=== PATIENT | male | born 1990 | race Caucasian/White ===

== ENCOUNTER 2025-03-11 00:56 | Emergency (ER) | payer OTHER, MEDICAID, SELFPAY ==
[2025-03-11] VITALS (9 sets, daily range): BP systolic 101–149; BP diastolic 56–96; PULSE 51–76; RESP 15–18; O2SAT 70–99; BMI 22.5
--- NOTE | 2025-03-11 01:10 | ED.ABDPAIN ---
HPI - Abdominal Pain General Chief Complaint: Abdominal Pain Stated Complaint: RUQ pain Time Seen by Provider: 03/11/25 00:56 History of Present Illness HPI narrative: 35-year-old male history of alcohol pancreatitis presents with epigastric pain and nonbilious nonbloody vomit and watery diarrhea brought in via EMS given 100 of fentanyl prior to arrival. 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 Patient denies chest pain shortness breath cough fever chills body aches urinary complaints. Other than what is stated 14 point review of system is negative. Related Data Previous Rx's ?Medication ?Instructions ?Recorded ondansetron HCl 4 mg tablet 4 mg PO Q6H PRN nausea and 03/11/25 vomiting #30 tabs Allergies Allergy/AdvReac Type Severity Reaction Status Date / Time No Known Drug Allergies Allergy Verified 03/11/25 01:09 Review of Systems Review of Systems ROS Unobtainable: All systems reviewed & are unremarkable except as noted in HPI and below Exam Narrative Exam Narrative: GENERAL: [35] year old patient appears stated age. Well-developed patient, in mild distress. HEAD: Atraumatic. Normocephalic. EYES: Pupils equal round and reactive. Extraocular motions intact. No scleral icterus. No injection or drainage. ENT: Nose without bleeding, purulent drainage. Throat without erythema, tonsillar hypertrophy or exudate. Airway patent. NECK: Trachea midline. Non tender CARDIOVASCULAR: Regular rate and rhythm without murmurs, gallops, or rubs. RESPIRATORY: Clear to auscultation. Breath sounds equal bilaterally. No wheezes, rales, or rhonchi. GASTROINTESTINAL: Abdomen soft, epigastric tenderness to palpation but no rebound rigidity or guarding nondistended. EXTREMITIES: No edema or joint tenderness. BACK: Nontender without deformity or crepitance. No flank tenderness. NEURO: AOx3. SKIN: No rash or erythema of visible areas MDM - Abdominal Pain MDM Narrative Medical decision making narrative: All lab work, vital signs, nurse triage note, medication list, previous ER visits, and all imaging studies reviewed. CT scan showed abdominal and pelvic ascites but no evidence of colitis diverticulitis bowel obstruction or obstructive uropathy. Appendix is not seen. Patient did have a white count of 18.9 with a left shift CO2 was 23 BUN 21 creatinine 0.68 glucose 104 lipase was 45 take acid is 1.1. Differential diagnosis includes pancreatitis cholecystitis appendicitis cyclic abdominal vomiting syndrome secondary to marijuana use. DC home on Zofran rx and to keep hydrated with clear liquid diet and to advance as tolerated and to return with new or worsening symptoms. Discharge Plan Departure Patient Disposition: Home Clinical Impression: Abdominal pain Qualifiers: Abdominal location: epigastric Qualified Code(s): R10.13 - Epigastric pain Nausea & vomiting Qualifiers: Vomiting type: unspecified Qualified Code(s): R11.2 - Nausea with vomiting, unspecified Instructions: DI for Abdominal Pain-Adult Activity Restrictions/Additional Instructions: Return with new or worsening symptoms. Clear liquid diet advance as tolerated. Take medicine as directed. Follow up with PCP in 1-2 weeks if no improvement in symptoms. Prescriptions: New ondansetron HCl 4 mg tablet 4 mg PO Q6H PRN (Reason: nausea and vomiting) Qty: 30 0RF Stand Alone Forms: Patient Portal/API
--- NOTE | 2025-03-11 01:11 | DI.CT.S_ITS ---
PROCEDURE: CT ABDOMEN PELVIS W CON INDICATIONS: abd pain /hx pancreatitis TECHNIQUE: After the administration of intravenous contrast, axial sections acquired from the lung bases to the pubic symphysis. Coronal and sagittal reformats were performed. For radiation dose reduction, the following was used: automated exposure control, adjustment of mA and/or kV according to patient size. COMPARISON: [facility], CT, CT ABDOMEN PELVIS WITH CONTRAST, 11/01/2019, 19:13. FINDINGS: Image quality: Diagnostic Lower chest: Unremarkable lung bases Liver: Unremarkable Gallbladder and biliary system: CBD is at the upper limit of normal, measuring 6 mm. Gallbladder is unremarkable. Pancreas: [id number] peripancreatic edema. There are calcifications distally. Low-attenuation focus is seen at the pancreatic tail. Pancreas divisum Spleen: Nonenlarged Adrenals: No discrete nodules Kidneys: No solid renal mass. No hydronephrosis. Vessels and lymph nodes: No abdominal aortic aneurysm. The main portal vein is patent. Mild atherosclerotic calcifications. No pathologic lymphadenopathy by size criteria. Bowel and peritoneum: Diffuse changes of enteritis with fluid-filled bowel and wall thickening. No definite obstruction. Wall thickening and mild edema also seen throughout the colon. Mild diffuse ascites. Nondilated appendix Body wall: Unremarkable Pelvis: Bladder is unremarkable. Bones: No aggressive appearing osseous abnormality. IMPRESSION: Hypoattenuation and calcifications of the distal pancreas. Consider nonurgent pancreas MRI to further evaluate. No high-grade peripancreatic inflammatory changes by CT. Suspect enterocolitis, moderate in severity. Mild diffuse ascites. Due to changes from the preliminary report, this was called to Dr. Barraza. Dictated by: Eduar Mistry M.D. on 03/11/2025 at 9:29 Approved by: Eduar Mistry M.D. on 03/11/2025 at 9:36
[2025-03-11] MEDS: KETOROLAC 30 MG/ML VIAL IV (01:21)
[2025-03-11] MEDS: droPERidol 2.5 MG/ML VIAL IV (01:22)
[2025-03-11] MEDS: diphenhydrAMINE 50 MG/ML VIAL IV (01:23)
[2025-03-11] MEDS: LACTATED RINGERS 1,000 ML 1000 ML IV (01:24)
[2025-03-11 01:43] LABS: Add Manual Diff / Slide Review NO; Basophils Absolute Auto 100 /uL (0-100); Basophils Percent Auto 0.5 % (0-2); Eosinophils Absolute Auto 0 /uL (0-450); Eosinophils Percent Auto 0.2 % (2-4); Hematocrit 44.1 % (41-53); Hemoglobin 15.1 g/dL (13.5-17.5); Lymphocytes Absolute Auto 3000 /uL (1100-4500); Lymphocytes Percent Auto 15.8 % (25-40); Mean Corpuscular HGB Conc 34.2 % (30-36); Mean Corpuscular Hemoglobin 30.8 PG (26-34); Monocytes Absolute Auto 600 /uL (0-900); Neutrophils Absolute Auto 15200 /uL (1500-7000); Neutrophils Percent Auto 80.5 % (50-75); Platelet Count 277 X10^3/uL (150-400); Red Cell Distribution Width 13.9 % (11.6-14.8); White Blood Cell Count 18.9 X10^3/uL (4.5-11.0)
[2025-03-11 01:57] LABS: Alanine Aminotransferase 20 IU/L (<50); Albumin 4.7 g/dL (3.5-5.0); Albumin Globulin Ratio 1.6 (1.0-2.8); Alkaline Phosphatase 76 U/L (38-126); Aspartate Aminotransferase 35 IU/L (17-59); BUN Creatinine Ratio 30.9 (6-22); Bilirubin Total 1.1 mg/dL (0.2-1.3); Blood Urea Nitrogen 21 mg/dL (9-20); Calcium 9.4 mg/dL (8.4-10.2); Carbon Dioxide 23 mmol/L (22-32); Chloride 105 mmol/L (98-107); Estimated Glomerular Filt Rate > 60 mL/min (>60); Glucose 104 mg/dL (70-99); HEMOLYSIS 32 (0-50); Lipase 45 U/L (23-300); Potassium 3.6 mmol/L (3.4-5.1); Sodium 137 mmol/L (137-145); Total Protein 7.7 g/dL (6.3-8.2)
[2025-03-11 02:08] LABS: Lactate (Lactic Acid) 1.1 mmol/L (0.7-2.1)
[2025-03-11 03:42] LABS: Ictotest Urine Negative (Negative); Urine Volume 10mL (spun)
[2025-03-11 03:43] LABS: Bacteria Urine None Seen; Culture Indicated Urine Cult Not Indicated; RBC Urine 0-1/HPF (0-5/HPF); Squamous Epithelial Cell Urine None Seen (0-5/HPF); WBC Urine None Seen (0-5/HPF)
== END 2025-03-11 03:40 | disposition home or self-care (01) ==
PROVIDERS: Emergency Provider Family Medicine
DX: R10.13 Epigastric pain (principal); R11.2 Nausea with vomiting, unspecified; R19.7 Diarrhea, unspecified
CPT/HCPCS: 36415; 74177; 80053; 81003; 81015; 83605; 83690; 85025; 87040; 87086; 96361; 96374; 96375; 99283; 99284; J1200; J1790; J1885; Q9967

== ENCOUNTER 2025-07-07 01:54 | Emergency (ER) | payer OTHER, MEDICAID, SELFPAY ==
[2025-07-07] VITALS (8 sets, daily range): BP systolic 102–128; BP diastolic 67–81; PULSE 64–86; RESP 20; TEMP 36.4; O2SAT 94–100; BMI 21.2
--- NOTE | 2025-07-07 02:23 | ED_ITS ---
HPI - Abdominal Pain General Chief Complaint: Abdominal Pain Stated Complaint: abdominal pain Time Seen by Provider: 07/07/25 02:06 Source: patient and EMS Mode of arrival: EMS History of Present Illness HPI narrative: 35-year-old male with history of prior pancreatitis, prior use of omeprazole print not recently taken, complains of epigastric abdominal pain, no trauma, no fevers or chills. Denies nausea and vomiting. No diarrhea, black stools, red stools. Denies injury or trauma or new activities. No painful or frequent urination. Denies chest discomfort, cough, shortness of breath. Related Data Previous Rx's ?Medication ?Instructions ?Recorded ondansetron HCl 4 mg tablet 4 mg PO Q6H PRN nausea and 03/11/25 vomiting #30 tabs omeprazole 20 mg capsule,delayed 20 mg PO DAILY upper abdominal 07/07/25 release pain 30 days #30 caps Allergies Allergy/AdvReac Type Severity Reaction Status Date / Time No Known Drug Allergies Allergy Verified 07/07/25 02:02 Exam Narrative Exam Narrative: GENERAL: Well-developed patient, in mild distress. HEAD: Atraumatic. Normocephalic. EYES: Pupils equal round and reactive. Extraocular motions intact. No scleral icterus. No injection or drainage. ENT: Nose without bleeding, purulent drainage. Throat without erythema, tonsillar hypertrophy or exudate. Airway patent. NECK: Trachea midline. Non tender CARDIOVASCULAR: Regular rate and rhythm without murmurs, gallops, or rubs. RESPIRATORY: Clear to auscultation. Breath sounds equal bilaterally. No wheezes, rales, or rhonchi. GASTROINTESTINAL: Abdomen soft, non-tender, nondistended. EXTREMITIES: No edema or joint tenderness. BACK: Nontender without deformity or crepitance. No flank tenderness. NEURO: AOx3. Motor functions grossly nonfocal. SKIN: No rash or erythema of visible areas Initial Vital Signs Initial Vital Signs: Vital Signs Pulse Rate 64 07/07/25 02:00 Pulse Oximetry 100 07/07/25 02:00 Oxygen Delivery Method Room Air 07/07/25 02:00 Course Orders Ordered: ED Orders 07/07/25 02:00 Complete Blood Count AUTO DIFF Stat Comprehensive Metabolic Panel Stat Lipase Stat 07/07/25 03:24 CT abdomen pelvis w con Stat Discontinued Medications Hydrocodone Bitart/Acetaminophen (Hydrocodone/Acet 5/325 Prepack) 1 bottle MISC DIRECTED ONE Stop: 07/07/25 02:48 Last Admin: 07/07/25 02:55 Dose: Not Given Documented By: Famotidine (Famotidine 20 Mg/2 Ml Vial) 20 mg IV NOW SHAY Last Admin: 07/07/25 02:35 Dose: 20 mg Documented By: Pantoprazole Sodium (Pantoprazole Dr 20 Mg Tablet) 20 mg PO NOW ONE Stop: 07/07/25 04:28 Last Admin: 07/07/25 04:40 Dose: 20 mg Documented By: CAROLINA Vital Signs Vital signs: Vital Signs - 8 hr 07/07/25 02:00 07/07/25 02:02 07/07/25 02:30 Temperature 97.5 F L Pulse Rate 64 65 74 Respiratory Rate 20 Blood Pressure 128/67 Pulse Oximetry 100 98 99 Oxygen Delivery Method Room Air Room Air 07/07/25 02:30 07/07/25 03:00 07/07/25 03:00 Temperature Pulse Rate 70 Respiratory Rate Blood Pressure 108/72 116/81 Pulse Oximetry 94 Oxygen Delivery Method 07/07/25 03:30 07/07/25 03:30 07/07/25 03:48 Temperature Pulse Rate 86 85 Respiratory Rate Blood Pressure 113/75 Pulse Oximetry 97 96 Oxygen Delivery Method 07/07/25 03:48 07/07/25 04:00 07/07/25 04:00 Temperature Pulse Rate 74 Respiratory Rate Blood Pressure 107/75 115/76 Pulse Oximetry 96 Oxygen Delivery Method 07/07/25 04:30 07/07/25 04:30 Temperature Pulse Rate 73 Respiratory Rate Blood Pressure 102/72 Pulse Oximetry 96 Oxygen Delivery Method MDM - Abdominal Pain Lab Data Attestation: I reviewed the patient's lab results. Lab results narrative: White blood cell count 51311, hemoglobin 16.8, platelets adequate. Glucose 94. Normal renal function, serum CO2, electrolytes. Liver functions and lipase normal. 07/07/25 02:00 07/07/25 02:00 Labs: Lab Results 07/07/25 Range/Units 02:00 WBC 14.7 H (4.5-11.0) X10^3/uL RBC 5.69 (4.5-5.9) X10^6/uL Hgb 16.8 (13.5-17.5) g/dL Hct 49.9 (41-53) % MCV 87.8 (80-100) fL MCH 29.6 (26-34) PG MCHC 33.7 (30-36) % RDW 14.2 (11.6-14.8) % Plt Count 327 (150-400) X10^3/uL Neut % (Auto) 57.5 (50-75) % Lymph % (Auto) 34.5 (25-40) % Shannon % (Auto) 6.7 (3-14) % Eos % (Auto) 0.6 L (2-4) % Baso % (Auto) 0.7 (0-2) % Neut # (Auto) 8500 H (4362-6779) /uL Lymph # (Auto) 5100 H (1181-2388) /uL Shannon # (Auto) 1000 H (0-900) /uL Eos # (Auto) 100 (0-450) /uL Baso # (Auto) 100 (0-100) /uL Sodium 140 (137-145) mmol/L Potassium 3.5 (3.4-5.1) mmol/L Chloride 100 (98-107) mmol/L Carbon Dioxide 27 (22-32) mmol/L BUN 13 (9-20) mg/dL Creatinine 0.89 (0.66-1.25) mg/dL Estimated GFR > 60 (>60) mL/min BUN/Creatinine Ratio 14.6 (6-22) Glucose 94 (70-99) mg/dL Calcium 10.3 H (8.4-10.2) mg/dL Total Bilirubin 0.8 (0.2-1.3) mg/dL AST 33 (17-59) IU/L ALT 21 (<50) IU/L Alkaline Phosphatase 77 (38-126) U/L Total Protein 8.6 H (6.3-8.2) g/dL Albumin 5.2 H (3.5-5.0) g/dL Globulin 3.4 (1.7-4.1) g/dL Albumin/Globulin Ratio 1.5 (1.0-2.8) Lipase 25 (23-300) U/L [facility] Narrative Medical decision making narrative: 35-year-old male with history of pancreatitis, as complaint of upper abdominal discomfort. Mild epigastric area tenderness, nondistended, nonrigid. Afebrile, sirs screen negative. DDx consider recurrence of pancreatitis, also consider PUD, gastritis, THAIS, biliary colic, cholecystitis, choledocholithiasis, colitis, diverticulitis, muscular, other. Lab data: White blood cell count 79050, hemoglobin 16.8, platelets adequate. Glucose 94. Normal renal function, serum CO2, electrolytes. Liver functions and lipase normal. Renal function adequate, CT abdomen and pelvis with IV contrast ordered. Patient declines pain medications when offered. CT abdomen and pelvis IV contrast. Impression: ?Small pelvic free fluid. No other evidence of acute intra-abdominal or pelvic pathology. Fluid gastric distention. Pancreatic calcifications compatible with chronic pancreatitis.? See tele radiology report. No acute pancreatitis changes on imaging, some calcifications consistent with chronic pancreatitis. Epigastric pain not necessarily related to pancreas at this time, trial of antacid, prescription for omeprazole and Carafate sent to his requested pharmacy. Oral dose pantoprazole for now. Discharged home with friend. Follow up with PCP, consider referral for upper endoscopy evaluation. Return precautions discussed. Discharge Plan Departure Patient Disposition: Home Clinical Impression: Epigastric abdominal pain, Chronic pancreatitis Instructions: DI for Epigastric Pain Activity Restrictions/Additional Instructions: History of pancreatitis in the past. Epigastric area discomfort. No fever on triage. Minimal tenderness on examination. Lab testing showed mild elevation white blood cell count, but lipase from the pancreas not elevated. Liver functions unremarkable. CT scanning tonight of the abdomen and pelvis did not show acute inflammation of the pancreas, although there was calcification in the pancreas consistent with chronic pancreatitis. You might be having discomfort in the epigastric area from non pancreas origin. Consider inflammation of the stomach gastritis, or ulceration of the stomach or esophagitis. Trial of antacid. You had been on omeprazole in the past but not recently taking. Oral dose of pantoprazole similar medication given in the emergency department. Prescription for omeprazole sent to your requested pharmacy. Take antacid as directed. Consider upper endoscopy evaluation. Discuss referral for upper endoscopy with your regular provider. Recheck with your regular provider this next week to review symptoms and consider coordination of upper endoscopy follow up evaluation. Return to this/nearest emergency department for any change worsening symptoms or any concerns prior. Prescriptions: New omeprazole 20 mg capsule,delayed release(DR/EC) 20 mg PO DAILY 30 Days Qty: 30 0RF No Action ondansetron HCl 4 mg tablet 4 mg PO Q6H PRN (Reason: nausea and vomiting) Qty: 30 0RF Stand Alone Forms: Patient Portal/API
[2025-07-07 02:35] LABS: Add Manual Diff / Slide Review NO; Hematocrit 49.9 % (41-53); Hemoglobin 16.8 g/dL (13.5-17.5); Lymphocytes Absolute Auto 5100 /uL (1100-4500); Mean Corpuscular HGB Conc 33.7 % (30-36); Mean Corpuscular Hemoglobin 29.6 PG (26-34); Mean Corpuscular Volume 87.8 fL (80-100); Platelet Count 327 X10^3/uL (150-400)
[2025-07-07] MEDS: FAMOTIDINE 20 MG/2 ML VIAL IV (02:35)
[2025-07-07 02:38] LABS: Alanine Aminotransferase 21 IU/L (<50); Albumin 5.2 g/dL (3.5-5.0); Albumin Globulin Ratio 1.5 (1.0-2.8); Alkaline Phosphatase 77 U/L (38-126); Blood Urea Nitrogen 13 mg/dL (9-20); Calcium 10.3 mg/dL (8.4-10.2); Carbon Dioxide 27 mmol/L (22-32); Chloride 100 mmol/L (98-107); Estimated Glomerular Filt Rate > 60 mL/min (>60); Globulin 3.4 g/dL (1.7-4.1); Glucose 94 mg/dL (70-99); HEMOLYSIS < 15 (0-50); Lipase 25 U/L (23-300); Potassium 3.5 mmol/L (3.4-5.1); Sodium 140 mmol/L (137-145); Total Protein 8.6 g/dL (6.3-8.2)
--- NOTE | 2025-07-07 03:24 | DI.CT.S_ITS ---
PROCEDURE: CT ABDOMEN PELVIS W CON INDICATIONS: abd pain, hx pancreatitis TECHNIQUE: After the administration of intravenous contrast, axial sections acquired from the lung bases to the pubic symphysis. Coronal and sagittal reformats were performed. For radiation dose reduction, the following was used: automated exposure control, adjustment of mA and/or kV according to patient size. COMPARISON: [facility], CT, CT ABDOMEN PELVIS W CON, 03/11/2025, 2:10. FINDINGS: Image quality: Diagnostic. Lower Chest: No significant findings. ABDOMEN: Liver: No solid mass. Gallbladder: No radiopaque gallstones or wall thickening. Biliary ducts: No biliary dilation. Pancreas: No ductal dilation. Pancreatic tail calcifications are consistent with chronic pancreatitis. Spleen: Size is within normal limits. Adrenal Glands: No adrenal nodules. Kidneys and Ureters: No hydronephrosis. No solid mass. No complex renal cystic lesion which requires follow up. Stomach and Bowel: Mild diffuse thickening of all of the jejunal and ileal small bowel loops, which are filled with fluid, consistent with nonspecific small bowel enteritis. There is fluid present throughout the colon consistent with diarrhea. Stomach is mildly distended and filled with fluid. Peritoneum: No abnormal intraperitoneal fluid. No free air. Ventral Wall: No significant ventral hernia. Abdominal Nodes: No retroperitoneal or mesenteric adenopathy by size criteria. Vessels: Aorta and inferior vena cava are normal in size. PELVIS: Pelvic Organs: Unremarkable. Bladder: No bladder wall thickening, accounting for underdistention. Pelvic Nodes: No enlarged lymph nodes. Miscellaneous: No inguinal hernias are seen. Bones: No aggressive osseous abnormality. IMPRESSION: 1. Nonspecific diffuse small bowel enteritis. 2. Diarrhea. 3. Findings of chronic pancreatitis. Comment: Final report is concordant with preliminary interpretation provided by [facility]. Dictated by: Jaya Mosquera M.D. on 07/07/2025 at 7:38 Approved by: Jaya Mosquera M.D. on 07/07/2025 at 7:49
[2025-07-07] MEDS: PANTOPRAZOLE DR 20 MG TABLET PO (04:40)
== END 2025-07-07 04:46 | disposition home or self-care (01) ==
PROVIDERS: Emergency Provider Emergency Medicine
DX: R10.13 Epigastric pain (principal); K86.1 Other chronic pancreatitis
CPT/HCPCS: 74177; 80053; 83690; 85025; 96374; 99284; Q9967